=== PATIENT | female | born 1965 | race Caucasian/White ===

== ENCOUNTER 2019-10-02 15:52 | Emergency (ER) | payer MEDICARE, SELFPAY ==
[2019-10-02 16:20] VITALS: BP 132/64; PULSE 93; RESP 20; TEMP 37.5; O2SAT 95
--- NOTE | 2019-10-02 16:57 | ED.URI ---
HPI - URI/Sore Throat General Chief Complaint: Upper Respiratory Infection Stated Complaint: Ear/Nose/Throat Time Seen by Provider: 10/02/19 16:57 Source: patient Mode of arrival: ambulatory Limitations: no limitations History of Present Illness HPI Narrative: patient presents with a sore throat. Hurts to swallow. no drooling no trouble swallowing. MD elicited complaint: sore throat Related Data Home Medications Medication Instructions Recorded Confirmed duloxetine 60 mg PO DAILY 10/02/19 10/02/19 gabapentin 800 mg PO QID 10/02/19 10/02/19 hydrocodone-acetaminophen 1 tablet PO Q6H PRN 10/02/19 10/02/19 meloxicam 15 mg PO DAILY 10/02/19 10/02/19 Allergies Allergy/AdvReac Type Severity Reaction Status Date / Time Gadolinium-Containing Allergy Intermediate Itching Verified 10/02/19 16:40 Contrast Medi Tetracyclines AdvReac Intermediate Nausea and Verified 10/02/19 16:40 Vomiting Review of Systems Review of Systems: Narrative: CONSTITUTIONAL: Denies fever, chills, or sweats. EYES: Denies visual changes, redness, or discharge. ENT: Denies rhinorrhea, congestion, or otalgia. Reports sore throat CARDIOVASCULAR: Denies chest pain, palpitations, or edema. RESPIRATORY: Denies cough or dyspnea. GASTROINTESTINAL: Denies abdominal pain, nausea, vomiting, or diarrhea. GENITOURINARY: Denies dysuria or hematuria. SKIN: Denies rash or itching. MUSCULOSKELETAL: Denies back pain, joint pain, or myalgia. NEUROLOGIC: Denies headache, numbness, or weakness. PSYCHIATRIC: Denies anxiety or depression. PMFSH Comments At time of signature, agree with nursing past medical, surgical, social and family history. There is no relevant family history pertinent to the presenting complaint Exam Narrative: Exam Narrative: GENERAL: Well-appearing, well-nourished, and in no acute distress. HEAD: Normocephalic, atraumatic. EYES: PERRLA and EOMI. ENT: Nares clear, no rhinorrhea or epistaxis. Mucous membranes moist. Mild pharyngeal erythremia no exudate no trismus able to open mouth fully no drooling NECK: Supple. CHEST: Clear to auscultation. No respiratory distress. HEART: Regular rate and rhythm. No murmur heard. Normal peripheral pulses. ABDOMEN: Soft, nontender, nondistended, normal active bowel sounds. EXTREMITIES: Normal range of motion. No edema. SKIN: Warm, dry, no rash. NEURO: No focal deficits. Alert and oriented x3. Sarah Coma Scale Eye Opening: Spontaneous 4 Sarah Coma Scale Motor: Obeys Commands 6 [place] Coma Scale Verbal: Oriented 5 Sarah Coma Scale Total 15 Course Vital Signs Vital signs: Vital Signs Temperature 37.5 C 10/02/19 16:20 Pulse Rate 93 10/02/19 16:20 Respiratory Rate 20 10/02/19 16:20 Blood Pressure 132/64 10/02/19 16:20 Pulse Oximetry 95 10/02/19 16:20 Temperature 37.5 C 10/02/19 16:20 Pulse Rate 93 10/02/19 16:20 Respiratory Rate 20 10/02/19 16:20 Blood Pressure 132/64 10/02/19 16:20 Pulse Oximetry 95 10/02/19 16:20 MDM - URI/Sore Throat Differential Diagnosis Differential diagnosis: Likely upper respiratory infection, viral infection and pharyngitis Lab Data Lab results narrative: Positive strep test Critical Care Time Critical Care Time Critical Care Time: No Discharge Plan Discharge Clinical Impression: Strep pharyngitis, Upper respiratory infection Patient Disposition: Home, Self-Care Condition: Stable Instructions: Antibiotic Form Additional Instructions: Increase fluids especially juices and water [id number]-hpu-ppzlabe cough and cold medicine of your choice for your symptoms Salt water gargles, throat lozenges or throat sprays as desired change toothbrush in 3-5 days Antibiotic as directed--finished the medication It may take the antibiotic 2-3 days to control the fever/symptoms -If you have any worsening of symptoms or any other concerns please go to the ED immediately. Prescriptions: New methylprednisolone [Medrol (P
== END 2019-10-02 17:05 | disposition home or self-care (01) ==
PROVIDERS: Emergency Provider Nurse Practitioner Family; PCP Family Medicine Adolescent Medicine
DX: J02.0 Streptococcal pharyngitis (principal)
CPT/HCPCS: 87880; 99213; G0463

== ENCOUNTER 2020-01-11 12:09 | Outpatient (CLI) | payer MEDICARE, SELFPAY ==
--- NOTE | ~2020-01-11 | XR_ITS ---
XR knee LT min 4V DATE: 01/11/2020 12:30 INDICATION: Medial pain of sudden onset TECHNIQUE: 4 views COMPARISON: None FINDINGS: There is soft tissue fullness in the suprapatellar bursa area suggesting suprapatellar knee joint effusion. There is mild periarticular spurring of the patella and apparent patellofemoral joint space narrowing , consistent with osteoarthritis. There is mild 2 moderate loss of height of medial compartment joint space and minimal medial periarti cular spurring suggesting osteoarthritic change. No fracture or dislocation, radiopaque intra-articular loose body or chondrocalcinosis. IMPRESSION: Knee joint effusion Osteoarthritis Reviewed, dictated and finalized at location A.
== END 2020-01-11 12:10 | disposition home or self-care (01) ==
PROVIDERS: PCP Family Medicine Adolescent Medicine; Visit Provider Family Medicine Adolescent Medicine
DX: M25.562 Pain in left knee (principal); M25.462 Effusion, left knee; M17.12 Unilateral primary osteoarthritis, left knee
CPT/HCPCS: 73564

== ENCOUNTER 2020-01-22 07:40 | Outpatient (CLI) | payer MEDICARE, SELFPAY ==
--- NOTE | ~2020-01-22 | MR_ITS ---
EXAMINATION: MR knee LT wo con DATE: 01/22/2020 08:34 INDICATION: Left knee injury with persistent joint effusion TECHNIQUE: Magnetic resonance imaging (MRI) of the left knee was performed without intravenous contra st. Sequences included coronal PD-weighted FSE, coronal PD-weighted FS FSE, sagittal T2-weighted FSE , sagittal PD-weighted FS FSE and axial PD weighted fat saturated FSE. COMPARISON: Left knee radiographs dated 01/11/2020 FINDINGS: Medial compartment: Complex tear of the medial meniscus with radial tear plane near the posterior root and with longitudi nal horizontal tear plane extending into the more medial posterior horn and posterior aspect of the m eniscal body. Partial-thickness chondral fissuring involving up to 50% of the cartilage thickness eusebia ng the anterior to central weightbearing medial femoral condyle. Chondral ulceration with mild partia l thickness cartilage loss and chondral surface irregularity along the medial tibial plateau. There i s mild subarticular edema along the medial rim of the medial tibial plateau. Lateral compartment: Lateral meniscus is normal. Partial-thickness chondral fissuring which appears to involve at least 50 % the cartilage thickness at the central aspect of the lateral tibial plateau. Mild partial thickness cartilage loss with mild chondral surface regularity along the medial side of the central to posteri or weightbearing lateral femoral condyle. Patellofemoral compartment: Full/near full-thickness chondral ulceration with scattered mild subarticular edema along much of the lateral patellar facet and along portions of the juxtaposed lateral trochlea. Deep fissuring at the patellar apical ridge, at the medial patellar facet and at the medial trochlea. Ligaments and tendons: Anterior and posterior cruciate ligaments are normal. The medial collateral ligament and fibular pretty ateral ligament complex are normal. Mild distal quadriceps and distal patellar tendinopathy without d iscrete tear. The visualized medial and lateral hamstring tendons as well as the iliotibial band are normal. Fluid: Small knee joint effusion with fluid and mild synovitis at the suprapatellar pouch. No loose osteocho ndral bodies identified. Osseous/other: Normal marrow signal aside from the previously noted regions of subarticular edema. No fracture or ab normal marrow replacing process. IMPRESSION: 1. Complex medial meniscal tear. 2. Tricompartmental osteoarthritis, mild to moderate severity in the patellofemoral compartment with high-grade chondromalacia. 3. Likely reactive small knee joint effusion. Reviewed, dictated and finalized at location A. IMPRESSION: 1. Complex medial meniscal tear. 2. Tricompartmental osteoarthritis, mild to moderate severity in the patellofem oral compartment with high-grade chondromalacia. 3. Likely reactive small knee joint effusion.
== END 2020-01-22 07:41 | disposition home or self-care (01) ==
PROVIDERS: PCP Family Medicine Adolescent Medicine; Visit Provider Family Medicine Adolescent Medicine
DX: S83.232A Complex tear of medial meniscus, current injury, left knee, initial encounter (principal); X58.XXXA Exposure to other specified factors, initial encounter; M17.12 Unilateral primary osteoarthritis, left knee; M25.462 Effusion, left knee; M22.42 Chondromalacia patellae, left knee
CPT/HCPCS: 73721

== ENCOUNTER 2020-03-26 09:40 | Outpatient (CLI) | payer MEDICARE, SELFPAY ==
[2020-03-26 10:38] LABS: Basophils Absolute Auto 0.1 K/mm3 (0.0-0.1); Basophils Percent Auto 1.2 % (0.2-1.2); Eosinophils Absolute Auto 0.1 K/mm3 (0-0.3); Eosinophils Percent Auto 2.8 % (0-4.4); Hematocrit 40.6 % (37.0-47.0); Hemoglobin 13.6 g/dL (12.0-15.0); Immature Granulocyte Absolute 0.01 K/mm3 (0.00-0.031); Immature Granulocyte Percent A 0.2 % (0-0.5); Lymphocytes Absolute Auto 1.77 K/mm3 (0.9-3.2); Lymphocytes Percent Auto 35.6 % (18.3-44.2); Mean Corpuscular HGB Conc 33.5 g/dl (32-36); Mean Corpuscular Hemoglobin 29.8 pg (26-34); Mean Platelet Volume 9.4 fl (7.4-10.4); Monocytes Absolute Auto 0.3 K/mm3 (0.1-0.6); Monocytes Percent Auto 5.2 % (2.6-8.5); Neutrophils Absolute Auto 2.7 K/mm3 (1.3-6.7); Platelet Count Result 209 k/mm3 (150-375); Red Blood Count 4.56 M/mm3 (4.2-5.4); Red Cell Distribution Width 12.3 % (11.5-14.5)
[2020-03-26 10:51] LABS: Rheumatoid Factor < 8.6 IU/ML (<12)
[2020-03-26 10:52] LABS: CRP < 0.5 mg/dL (<1.0); Uric Acid 5.1 mg/dL (2.5-7.5)
[2020-03-26 11:13] LABS: Erythrocyte Sedimentation Rate 18 mm/hr (0-20)
[2020-04-01 11:40] LABS: Anti Nuclear Antibody Pattern Nuclear, Speckled
== END 2020-03-26 09:41 | disposition home or self-care (01) ==
LOC: ANHLAB 09:40
PROVIDERS: Visit Provider Orthopaedic Surgery
DX: M17.0 Bilateral primary osteoarthritis of knee (principal); M06.9 Rheumatoid arthritis, unspecified
CPT/HCPCS: 36415; 84550; 85025; 85652; 86038; 86039; 86140; 86430

== ENCOUNTER 2021-03-10 17:00 | Outpatient (CLI) | payer MEDICARE, SELFPAY ==
[2021-03-10 17:43] LABS: Alanine Aminotransferase 17 U/L (4-35); Albumin Level 4.7 g/dL (3.5-5.1); Alkaline Phosphatase 67 U/L (38-126); Anion Gap 11 mmol/L (8-16); Aspartate Amino Transferase 27 U/L (14-36); Bilirubin,Total 0.6 mg/dL (0.2-1.3); Blood Urea Nitrogen 15 mg/dL (7-17); CRP < 0.5 mg/dL (<1.0); Calcium 9.4 mg/dL (8.4-10.2); Carbon Dioxide 23 mmol/L (22-30); Chloride 104 mmol/L (98-107); Estimated Glomerular Filt Rate 57; Glucose 124 mg/dL (65-105); Potassium 3.8 mmol/L (3.4-5.0); Sodium 138 mmol/L (137-145)
[2021-03-10 18:11] LABS: Erythrocyte Sedimentation Rate 15 mm/hr (0-20)
[2021-03-15 23:07] LABS: Anti Nuclear Antibody Pattern Nuclear, Speckled
== END 2021-03-10 17:01 | disposition home or self-care (01) ==
PROVIDERS: Visit Provider Physician Assistant
DX: M25.50 Pain in unspecified joint (principal)
CPT/HCPCS: 36415; 80053; 85652; 86038; 86039; 86140

== ENCOUNTER 2021-03-16 14:43 | Outpatient (CLI) | payer MEDICARE, SELFPAY | END 2021-03-16 14:44 | disposition home or self-care (01) | LOC: ANHLAB 14:46 | PROVIDERS: Visit Provider Physician Assistant | DX: F33.1 Major depressive disorder, recurrent, moderate (principal) | CPT/HCPCS: 36415; 84443 ==

== ENCOUNTER 2021-04-27 14:25 | Emergency (ER) | payer MEDICARE, SELFPAY ==
--- NOTE | ~2021-04-27 | XR_ITS ---
EXAMINATION: XR knee RT min 4V DATE: 04/27/2021 15:40 INDICATION: Right knee pain with palpable pop TECHNIQUE: Anteroposterior, 2 oblique and crosstable lateral views of the right knee were obtained COMPARISON: None. FINDINGS: Alignment is normal. No fracture. Joint spaces appear relatively preserved on nonweightbearing imagi ng. Small marginal osteophytes along the patella consistent with mild osteoarthritis. There is an oss icle along the superolateral margin of the patella which could represent either a bipartite patella w ith accessory apophyseal center or heterotopic ossification. No joint effusion/layering lipohemarthro sis. Soft tissues are unremarkable. IMPRESSION: 1. No right knee joint effusion or acute osseous abnormality. 2. 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 Reviewed, dictated and finalized at location B. IMPRESSION: 1. No right knee joint effusion or acute osseous abnormality. 2. Corticated ossicle along the superolateral margin of the patella with appear ance favoring heterotopic ossification along the medial patellofemoral retinacu lum over bipartite patella with accessory apophyseal center.
[2021-04-27 15:00] VITALS: BP 151/91; PULSE 70; RESP 18; TEMP 36.8; O2SAT 100
--- NOTE | 2021-04-27 16:52 | PC.NURSE ---
Pt ambulatory to intake states she has to leave due to her ride. Pt states its pretty bad when you get your results online before seeing the dr . Pt amb out of ED with limping gait. She had no further questions or complaints.
== END 2021-04-27 16:52 | disposition left against medical advice (07) ==
PROVIDERS: Emergency Provider Emergency Medicine; PCP Family Medicine Adolescent Medicine
DX: M25.561 Pain in right knee (principal)
CPT/HCPCS: 73564; 99199

== ENCOUNTER 2022-01-25 14:38 | Outpatient (CLI) | payer MEDICARE, SELFPAY ==
--- NOTE | 2022-01-25 | ECG_ITS ---
Measurements Intervals [place] Rate: 64 P: 61 AL: 131 QRS: 76 QRSD: 74 T: 55 QT: 379 QTc: 392 Interpretive Statements SINUS RHYTHM BORDERLINE ST ABNORMALITY- ANTERIOR LEADS BASELINE WANDER- AVR, AVL, AVF BORDERLINE ECG Electronically Signed On 01-25-2022 15:22:09 CDT by Marcelo Castro D.O.
[2022-01-25 15:42] LABS: Albumin Level 4.5 g/dL (3.5-5.1); Glucose 98 mg/dL (65-110)
[2022-01-26 09:32] LABS: Estimated Glomerular Filt Rate > 60
== END 2022-01-25 14:39 | disposition home or self-care (01) ==
PROVIDERS: PCP Family Medicine Adolescent Medicine; Visit Provider Orthopaedic Surgery
DX: M17.12 Unilateral primary osteoarthritis, left knee (principal); Z01.818 Encounter for other preprocedural examination; R94.31 Abnormal electrocardiogram [ECG] [EKG]
CPT/HCPCS: 36415; 82040; 82565; 82947; 93005

== ENCOUNTER 2022-03-05 11:34 | Outpatient (CLI) | payer MEDICARE, SELFPAY ==
[2022-03-05 13:04] LABS: Urine Cotinine NEGATIVE
[2022-03-05 13:35] LABS: Basophils Absolute Auto 0.1 K/mm3 (0.0-0.1); Basophils Percent Auto 1.1 % (0.2-1.2); Eosinophils Absolute Auto 0.1 K/mm3 (0-0.3); Eosinophils Percent Auto 1.9 % (0-4.4); Hematocrit 43.5 % (37.0-47.0); Hemoglobin 14.3 g/dL (12.0-15.0); Immature Granulocyte Absolute 0.01 K/mm3 (0.00-0.031); Immature Granulocyte Percent A 0.2 % (0-0.5); Lymphocytes Absolute Auto 1.72 K/mm3 (0.9-3.2); Lymphocytes Percent Auto 32.2 % (18.3-44.2); Mean Corpuscular HGB Conc 32.9 g/dl (32-36); Mean Corpuscular Hemoglobin 29.4 pg (26-34); Mean Corpuscular Volume 89.5 fl (80-100); Mean Platelet Volume 9.8 fl (7.4-10.4); Monocytes Absolute Auto 0.4 K/mm3 (0.1-0.6); Monocytes Percent Auto 8.2 % (2.6-8.5); Neutrophils Percent Auto 56.4 % (45.5-73.1); Platelet Count Result 236 k/mm3 (150-375); Red Blood Count 4.86 M/mm3 (4.2-5.4); Red Cell Distribution Width 13.1 % (11.5-14.5); White Blood Count 5.3 K/mm3 (4.5-10.0)
[2022-03-05 13:46] LABS: Albumin Level 4.8 g/dL (3.5-5.1); Estimated Glomerular Filt Rate > 60; Glucose 92 mg/dL (65-110)
[2022-03-05 15:18] LABS: Hemoglobin A1C 5.7 % (<5.7)
== END 2022-03-05 11:35 | disposition home or self-care (01) ==
LOC: ANHSURGERY 11:38
PROVIDERS: PCP Family Medicine Adolescent Medicine; Visit Provider Orthopaedic Surgery
DX: M17.12 Unilateral primary osteoarthritis, left knee (principal); Z01.818 Encounter for other preprocedural examination
CPT/HCPCS: 80307; 82040; 82565; 82947; 83036; 85025; 87081

== ENCOUNTER 2022-03-05 12:45 | Outpatient (CLI) | payer MEDICARE, SELFPAY ==
[2022-03-05 13:39] LABS: Alanine Aminotransferase 27 U/L (6-35); Albumin Level 4.8 g/dL (3.5-5.1); Alkaline Phosphatase 76 U/L (38-126); Anion Gap 4 mmol/L (8-16); Aspartate Amino Transferase 30 U/L (14-36); Bilirubin,Total 0.4 mg/dL (0.2-1.3); Blood Urea Nitrogen 16 mg/dL (7-17); Calcium 8.9 mg/dL (8.4-10.2); Carbon Dioxide 28 mmol/L (22-30); Chloride 104 mmol/L (98-107); Cholesterol 261 mg/dL (0-200); Estimated Glomerular Filt Rate > 60; Glucose 95 mg/dL (65-110); HDL Direct 67 mg/dL; Potassium 4.7 mmol/L (3.4-5.0); Sodium 136 mmol/L (137-145); Triglycerides 113 mg/dL (<150)
[2022-03-05 13:50] LABS: LDL Cholesterol Direct 145 mg/dL
== END 2022-03-05 12:46 | disposition home or self-care (01) ==
PROVIDERS: PCP Family Medicine Adolescent Medicine; Visit Provider Physician Assistant
DX: M17.12 Unilateral primary osteoarthritis, left knee (principal); E78.00 Pure hypercholesterolemia, unspecified
CPT/HCPCS: 36415; 80053; 80061

== ENCOUNTER 2022-03-30 00:04 | Day surgery (SDC) | payer MEDICARE, SELFPAY ==
--- NOTE | 2022-03-05 11:39 | PC.NURSE ---
Addendum entered by Sarah Hills RN 03/05/22 12:22: PT INSTRUCTED TO 20 OZ CLEAR LIQUIDS UP TO 0630 AM NOT 0930 AM - UNDERSTANDING VOICED Original Note: Report to the Outpatient Waiting Room, entrance under the green pavilion located off [facility], at time _0830_ on date _03/30/22_. OR Time: _1030_. - You and your visitor will be asked a series of questions to screen for COVID 19 for your protection. - Only one visitor is allowed at this time. - The patient visitor is requested to leave or wait in car when not with patient. - A mask is required within the hospital. VISITING HOURS 10AM-8PM, USE MAIN HOSPITAL ENTRANCE Patients may have clear liquids (water, carbonated beverages, clear teas, apple juice) until 3 hours prior to surgery (0930 AM) with a maximum of 20 ounces. - No food from midnight until time of surgery Take the following medications with a SIP of water the morning of surgery: _ GABAPENTIN, PAIN PILL IF NEEDED_ Medications to discontinue per DR. MENCHACA - _DICLOFENAC 7 DAYS PRIOR TO SURGERY, Date to take last dose 03/22/22_ Please no make-up, nail belarusian, hairspray, perfume, deodorant, or body powder the day of surgery. No jewelry (including any body piercings) or valuables the day of surgery, leave them at home. Please take a shower or bath the night before, or the morning of, surgery with an antibacterial soap. Wear comfortable, loose fitting clothing. - Jewelry must be removed prior to entering the operating room. Rings and piercings that are not removed may be cut off. - The hospital will not accept responsibility for valuables. - Please leave all valuables, including medications, at home the day of surgery. If you are going home after surgery, a licensed mechanic welder truck driver must drive you home. - NO public transportation without another adult. - We recommend that an adult stay with you for 24 hours following discharge. - We also recommend that you do not drive, make important decision, drink alcoholic beverages, or take any drugs that were not prescribed by your health care provider for at least 24 hours after your discharge time. Follow any additional instructions given to you from your surgeon. TOTAL JOINT CLASS 03/10/22 @ [address] [facility], USE MAIN HOSPITAL ENTRANCE - LOWER LEVEL If you or anyone in your household have experienced Covid symptoms in the past week, please notify your surgeon or the nurse liaison at the phone number below for possible testing. Instructions given to ___PT and asked if any additional questions and then verbalized understanding. Patient advised to call surgeon office or pre surgery nurse liaison [phone] if any additional questions.
[2022-03-05 11:45] VITALS: BP 134/70; PULSE 64; RESP 18; TEMP 36.3; O2SAT 97; BMI 38.5
--- NOTE | 2022-03-29 13:59 | WPDANESEPPF ---
Anes - Initial Pre Proc Eval Procedure: Operation Date: 03/30/22 10:30 Proposed Procedures p Left Total Knee Arthroplasty - Sky Giang MD Date/Time: 03/29/22 13:59 Surgeon: Sky Giang MD Pre Op Diagnosis: Prim O A Lt Knee Patient Data Age: 56 Gender: F Height: 1.67 m Weight: 107.6 kg Last Vital Signs Temp 36.3 C L 03/05/22 11:45 Pulse 64 03/05/22 11:45 Resp 18 03/05/22 11:45 BP 134/70 03/05/22 11:45 Pulse Ox 97 03/05/22 11:45 O2 Del Method Room Air 03/05/22 11:45 Allergies Allergy/AdvReac Type Severity Reaction Status Date / Time Gadolinium-Containing Allergy Intermediate Itching Verified 03/05/22 11:51 Contrast Medi Tetracyclines AdvReac Intermediate Nausea and Verified 03/05/22 11:51 Vomiting Home Medications Medication Instructions Recorded Confirmed Type gabapentin 800 mg tablet 800 mg PO QID #120 tabs 09/24/21 03/05/22 Rx diclofenac sodium 75 mg 75 mg PO BID #60 tabs 11/22/21 03/05/22 Rx tablet,delayed release duloxetine 60 mg capsule,delayed 60 mg PO HS 03/05/22 03/05/22 History release trazodone 100 mg tablet 100 mg HS PRN Sleep 03/05/22 03/05/22 History hydrocodone 10 mg-acetaminophen 1 tablet PO TID PRN pain #90 tabs 03/09/22 Rx 325 mg tablet Patient hx anesthesia problems: none Family hx anesthesia problems: none Results Review: All pre-operative results and documents have been reviewed as part of the pre-operative evaluation. [facility] Past Medical History Medical History (Updated 03/29/22 @ 14:00 by Erlin Hancock MD) BMI 34.0-34.9,adult Brown recluse spider bite 10/09/2015 left lower leg Chronic narcotic use Depression Fibromyalgia Obesity (BMI 30-39.9) Osteoarthritis of left knee Pure hypercholesterolemia, unspecified Ulnar nerve entrapment at right elbow Surgical History Surgical History H/O tubal ligation (~2000) History of carpal tunnel surgery of right wrist (~1994) History of decompression of ulnar nerve (~06/12/03) Rt Elbow Family History Family History Mother Cancer Father Heart disease Acute myocardial infarction Grandparent Cancer Carcinoma of colon Colon polyp Social History Social History Years smoked: 20 Smoking status: Former smoker Tobacco type: cigarettes Second hand tobacco smoke exposure: No Smoking end date: 09/05/17 Alcohol intake: never Substance use: never Substance use type: marijuana Other substance usage details: STATES OCCASIONAL GUMMIE FOR PAIN Last use: UNKNOWN Living arrangements: with roommate(s) Additional living arrangements comments: ROOMATE X1 Additional occupation/education comments: disabled Gender identity (if verbalized by the patient): Female Sexual Orientation (if Verbalized by the Patient): Straight or Heterosexual Spiritual care concerns: No Agree to blood products: Yes Anes - Eval Final PreProcedure Day of Procedure 03/29/22 13:59 Patient weight: obese Heart: regular rate and rhythm Lungs: clear to auscultation and normal air movement Airway: Mallampati scale class II Neurological: alert and oriented Last oral intake: >/= 8 hours ASA classification: III Emergent: no Anesthetic plan: proceed Anesthesia type and monitoring: general LMA Results Review: All pre-operative results and documents have been reviewed as part of the pre-operative evaluation. Informed Consent: The patient's anesthetic plan and its attendant risks and benefits were discussed with the patient/family/POA. Questions were solicited and answers provided to the satisfaction of the patient/family/POA.
--- NOTE | 2022-03-29 14:01 | WPDANESPNB ---
Anes - Peripheral Nerve Block Date/Time: 03/29/22 14:01 I have discussed with the patient/family/POA the placement of a peripheral nerve block for post-operative pain management, including associated risks, benefits, complications, and side effects. Alternative methods of post-operative analgesia were detailed. Questions were solicited and answers provided to the satisfaction of the patient/family/POA. Time-Out: A pre-procedural Time-Out was completed immediately before starting the procedure and confirmed: Patient Identification, Site, Procedure, Patient Position and the Availability of Requisite Equipment. Clinical Indications: Acute post-operative pain management requested by the operative surgeon. Nerve Block Insertion Note Anes-nerve block: adductor canal Patient position: supine Skin prep: chlorhexidine Needle: 22 gauge, stimulating, insulated echogenic needle. Needle length: 80 mm Technique: ultrasound Technique comment: in plane Injectate: bupivacaine 0.5% with epi 5 mcg/ml (30cc) Observations: tolerated well Complications: none Procedure start time:: 1015 Procedure end time:: 1020
[2022-03-30] VITALS (12 sets, daily range): BP systolic 111–147; BP diastolic 52–86; PULSE 68–87; RESP 10–20; TEMP 36.3–36.7; O2SAT 93–100
--- NOTE | ~2022-03-30 | XR_ITS ---
EXAMINATION: XR knee LT 2V DATE: 03/30/2022 13:17 INDICATION: Postoperative evaluation following left total knee arthroplasty. TECHNIQUE: Anteroposterior and lateral views of the left knee were obtained. COMPARISON: None. FINDINGS: Left total knee arthroplasty with patellar resurfacing appears well seated and in near anatomic align ment. No fractures identified. No drain and expected postoperative subcutaneous and intra-articular gas. IMPRESSION: 1. Left total knee arthroplasty, negative for postoperative purposes. Reviewed, dictated and finalized at location A.
[2022-03-30] MEDS: LACTATED RINGERS 1,000 ML 30 ML IV CONT ×2 (08:43→13:08)
[2022-03-30] MEDS: TRANEXAMIC ACID 1,000MG/ISO100 1,000 MG/100 ML BAG 200 MG IVPB (08:44)
[2022-03-30] MEDS: ACETAMINOPHEN 500 MG TABLET 1000 MG PO (08:44)
--- NOTE | 2022-03-30 10:22 | WPDHPUPDATE1 ---
History and Physical Update Update Date/Time: 03/30/22 10:22 History and Physical has been reviewed, including an updated exam of the patient. There are NO changes in the patient's condition. Risks, benefits, and alternatives have been discussed and questions answered. Patient agrees to proceed with procedure.
[2022-03-30] MEDS: ceFAZolin 2 GM/D5W 50 ML 2 GM/50 ML BAG IVPB ×2 (10:33→18:04)
[2022-03-30] MEDS: GENTAMICIN BONE CEMENT REFOBACIN 1 EACH TOPICAL (12:24)
--- NOTE | 2022-03-30 13:32 | SUR.PHASEI ---
1330- oral airway removed
[2022-03-30] MEDS: fentaNYL CITRATE INJ (*CRX) 100 MCG/2 ML VIAL 25 MCG IV PUSH ×4 (13:35→13:54)
--- NOTE | 2022-03-30 14:48 | PC.NURSE ---
This patient, Cheli Cahng, was admitted to Medical Room 341-01. Patient/family oriented to hospital policies and general routines including ID bracelet, bed and alarms, visiting hours, pain management, procedures, bathroom and other care routines, personal items, smoking policy, room service/diet, and visiting hours. Information on how to activate the Rapid Response Team has been discussed. Patient/Family are encouraged to report perceived risks to care and to ask questions if they do not understand what they are told or what they should do.
--- NOTE | 2022-03-30 15:08 | W.PM.PROC2 ---
Procedure Note - Detailed Date of Procedure 03/30/22 Pre-op Diagnosis Prim O A Lt Knee Post-op Diagnosis Same Procedure Performed Total knee arthroplasty, left. Surgeon Sky Giang MD Lead Burner Helper Jennifer Zuñiga PA-C Anesthesia General and Regional (subsartorial block) Findings Good bone quality. Mild medial release. Severe patellofemoral disease. Trabecular metal ingrowth patella component utilized. Good remaining bone quality after patellar resection. Femur downsized 1.5 mm. Description of Procedure The patient was brought to the operating room. A general anesthetic was administered. The leg was prepped and draped in the usual sterile fashion. The limb was elevated and the tourniquet inflated to 300 mmHg during initial exposure, and cementation. A longitudinal incision was created along the medial border of the patella and patellar tendon, and a trivector approach to the knee was performed. A mild medial release was taken. The knee was then flexed. The osteophytes were carefully removed. The intramedullary guide was placed in the femoral canal. The distal femoral resection was then taken with the oscillating saw. The collateral ligaments were carefully protected. The tibia was carefully exposed. The jig was applied, and the proximal tibia was resected according to preoperative plan. The knee was balanced in extension. Appropriate releases were taken where needed. The anterior cruciate ligament and meniscal remnants were removed. The posterior cruciate ligament was preserved. The patella was measured. Patellar resection was carried out with the oscillating saw. The lug holes drilled. The femur was sized and rotation assessed using a combination of gap balancing, posterior referencing, and the AP axis. The 4 in 1 cutting block was used to finish the femoral cuts after equal gaps were assured. The osteophytes were carefully removed from the back of the knee. The knee was copiously irrigated with antibiotic solution periodically throughout the procedure. The meniscal remnants were removed. The spacer block was used to confirm equal flexion and extension gaps. No further releases were needed. The tibia was sized and broached. The bony surfaces were prepared for cementing with pulsatile lavage. The tibia was cemented, the femur was Press-Fit, the poly insert was placed, and the patella was Press-Fit. Excess cement was carefully removed. Patellar tracking was carefully assessed. No additional releases were required. Dilute sterile Betadine soak performed for three minutes. Copious irrigation then performed. The wound was closed with #1 Vicryl suture, #2, 2-0, and 3-0 barbed suture, followed by Steri-Strips. A sterile bulky dressing was applied. Meticulous hemostasis was maintained throughout the procedure. The bipolar cautery device was used. The pain relieving mixture was injected into the periarticular tissues during the procedure. There were no complications. The patient was extubated and brought to the recovery room in stable condition after the application of sterile dressing with Brigido bandage. Physician therapy assistant, Jennifer Zuñiga PA-C, required for surgery; including patient positioning, draping, tissue retraction, maintaining instrument position, cement removal, wound closure, and dressing placement. Implants [employer] Triathlon knee system, low profile cemented tibia size 3, cemented cruciate retaining femoral component size 3 ,and an 11 mm cruciate retaining polyethylene insert. 32mm asymmetric all polyethylene patella component. Estimated Blood Loss 200 Drains No Pathology None sent Complications No immediate complications Condition Stable Disposition PACU [facility] Billing Surgery - Charge Forward: Surgery Billing
[2022-03-30] MEDS: SODIUM CHLORIDE 0.9% IV 1,000 ML 125 ML IV CONT (15:22)
[2022-03-30] MEDS: SENNA/DOCUSATE SODIUM TABLET 2 TAB PO (16:54)
[2022-03-30] MEDS: ASPIRIN 81 MG ENTERIC TABLET PO (16:54)
[2022-03-30] MEDS: DICLOFENAC SOD 75 MG TABLET.EC PO (16:54)
[2022-03-30] MEDS: GABAPENTIN 400 MG CAPSULE 800 MG PO ×2 (16:55→21:56)
[2022-03-30] MEDS: DULoxetine HCL 60 MG CAPSULE.DR PO (21:56)
[2022-03-30] MEDS: FAMOTIDINE 20 MG TABLET PO (21:56)
[2022-03-31 00:04] VITALS: BP 110/61; PULSE 74; RESP 18; TEMP 36.5; O2SAT 96
[2022-03-31] MEDS: ceFAZolin 2 GM/D5W 50 ML 2 GM/50 ML BAG IVPB ×2 (01:20→09:27)
[2022-03-31 03:59] VITALS: BP 112/58; PULSE 74; RESP 16; TEMP 36.9; O2SAT 96
[2022-03-31] MEDS: oxyCODONE HCL (*CRX) 5 MG TAB IR PO ×3 (04:11→17:04)
--- NOTE | 2022-03-31 09:20 | WPDANESPN ---
Anes - Prog Note Post-Op Date/Time: 03/31/22 09:20 Vital Signs: Last Vital Signs Temp 36.9 C 03/31/22 03:59 Pulse 74 03/31/22 03:59 Resp 16 03/31/22 03:59 BP 112/58 L 03/31/22 03:59 Pulse Ox 96 03/31/22 03:59 O2 Del Method Nasal Cannula 03/30/22 15:30 O2 Flow Rate 2 03/30/22 15:30 Pain Score (VAS): 0 I/O: Intake & Output 03/30/22 03/31/22 03/31/22 23:59 07:59 15:59 Intake Total 740 150 300 Balance 740 150 300 03/30/22 08:34 Blood Type O Positive Antibody Screen Negative Patient Feedback: Patient satisfied with anesthetic care.
[2022-03-31] MEDS: FAMOTIDINE 20 MG TABLET PO (09:25)
[2022-03-31] MEDS: DICLOFENAC SOD 75 MG TABLET.EC PO ×2 (09:25→17:05)
[2022-03-31] MEDS: ASPIRIN 81 MG ENTERIC TABLET PO ×2 (09:25→17:05)
[2022-03-31] MEDS: SENNA/DOCUSATE SODIUM TABLET 2 TAB PO ×2 (09:25→17:05)
[2022-03-31] MEDS: GABAPENTIN 400 MG CAPSULE 800 MG PO ×3 (09:25→17:05)
[2022-03-31] MEDS: predniSONE 5 MG TABLET PO (09:25)
[2022-03-31 14:00] VITALS: BP 128/72; PULSE 72; RESP 18; TEMP 36.6; O2SAT 95
--- NOTE | 2022-03-31 16:12 | P.DS_ITS ---
DS: Admitting Diagnosis Discharge Date 03/31/22 Admitting Diagnosis OA Left knee DS: Discharge Diagnosis Discharge Diagnosis Plan Postop day 1: Left total knee arthroplasty. Patient tolerated procedure well. Drain placed postoperatively. Drain has been removed. No increased pain. No complications. Pain manageable with pain medication. No numbness or tingling. We had a lengthy discussion regarding postoperative wound care, limitations, expectations, and exercises. Patient shows good understanding. She has had initial physical therapy and is tolerating it well. DVT prophylaxis: 81 mg baby aspirin b.i.d. for 14 days. Pain medication: Percocet. Prednisone. Continue home Diclofenac. Patient has followup appointment with Dr. Giang in 3 weeks. DS: Summary Hospital Course Reason for hospitalization: Total knee arthroplasty Hospital Course: Patient tolerated procedure well. Has had initial PT/OT. Status at Discharge Functional status at discharge: uses cane/walker Overall status at discharge: patient is progressing back to baseline Time Spent with Patient Time attestation: Total time spent providing and/or coordinating discharge services: Exam Narrative: Overweight 56 y/o female. Resting comfortably in bed. Wearing compression socks bilaterally. Dressing dry and intact with no drainage. Moderate swelling. No ecchymosis. No erythema. No hematoma. Range of motion limited due to pain. Calf nontender. Thigh nontender. Neurologic status intact. No varicosities. Distal pulses palpable. Discharge Plan Discharge Patient Disposition: Home, Self-Care Discharge Instructions: See green instruction sheets Stand Alone Forms: General Discharge Instructions Follow-up/Referrals: Jennifer Zuñiga PA [Physician Ground Support Equipment Assembler] - Discharge Medications: New prednisone 5 mg tablet 5 mg PO DAILY 21 Days Qty: 21 0RF aspirin 81 mg tablet,delayed release (DR/EC) 81 mg PO BID 14 Days Qty: 28 0RF oxycodone-acetaminophen 5-325 mg tablet 1 - 2 tablet PO Q4-6H MDD 6 PRN (Reason: pain) Qty: 30 0RF Continued trazodone 100 mg tablet 100 mg HS PRN (Reason: Sleep) Rx Instructions: TAKE 1 TABLET BY MOUTH EVERYDAY AT BEDTIME duloxetine 60 mg capsule,delayed release(DR/EC) 60 mg PO HS gabapentin 800 mg tablet 800 mg PO QID Qty: 120 5RF diclofenac sodium 75 mg tablet,delayed release (DR/EC) 75 mg PO BID Qty: 60 5RF Held hydrocodone-acetaminophen 10-325 mg tablet 1 tablet PO TID PRN (Reason: pain) Qty: 90 0RF Hold Instructions: Resume on 05/12/22. Stop while taking Oxycodone for post op pain.
== END 2022-03-31 17:20 | disposition home or self-care (01) ==
LOC: ANHSURGERY 13:05 → ANH3MED 14:22
PROVIDERS: PCP Family Medicine Adolescent Medicine; Visit Provider Orthopaedic Surgery
PROC: (CPT 27447; principal; 2022-03-30 10:30)
DX: M17.12 Unilateral primary osteoarthritis, left knee (principal); G89.18 Other acute postprocedural pain; M79.7 Fibromyalgia; Z79.891 Long term (current) use of opiate analgesic; Z87.891 Personal history of nicotine dependence
CPT/HCPCS: 27447; 64447; 36415; 73560; 80053; 80061; 80307; 82040; 82565; 82947; 83036; 85025; 86850; 86900; 86901; 87081; 97110; 97161; 97165; 97530; 97535; A9270; C1713; C1776; J0131; J0171; J0690; J1100; J1170; J1885; J2250; J2270; J2405; J2704; J2795; J3010; J7030; J7120; J7512

== ENCOUNTER → 2023-03-28 11:12 | Outpatient (CLI) | payer MEDICARE, SELFPAY ==
--- NOTE | ~2023-03-28 | XR_ITS ---
Lumbosacral Spine: AP and lateral views Clinical History: Pain Findings: The normal lordotic curve is maintained. 4 mm anterolisthesis of L4 over L5 noted. No fract ure seen. There is moderate to advanced facet arthropathy at L4-L5 and L5-S1. The intervertebral disc spaces are preserved. The sacroiliac joints are normally outlined. Impression: Moderate to advanced facet arthropathy at L4-L5 and L5-S1. 4 mm anterolisthesis of L4 over L5. Reviewed, dictated and finalized at location . Impression: Moderate to advanced facet arthropathy at L4-L5 and L5-S1. 4 mm anterolisthesis of L4 over L5.
== END ==
PROVIDERS: PCP Family Medicine Adolescent Medicine; Visit Provider Nurse Practitioner Family
DX: M54.50 Low back pain, unspecified (principal)
CPT/HCPCS: 72100

== ENCOUNTER 2023-03-28 12:19 | Outpatient (CLI) | payer MEDICARE, SELFPAY ==
[2023-03-28 13:29] LABS: Alanine Aminotransferase 34 U/L (6-35); Albumin Level 4.6 g/dL (3.5-5.1); Alkaline Phosphatase 69 U/L (38-126); Anion Gap 8 mmol/L (8-16); Aspartate Amino Transferase 31 U/L (14-36); Bilirubin,Total 0.5 mg/dL (0.2-1.3); Blood Urea Nitrogen 18 mg/dL (7-17); Carbon Dioxide 25 mmol/L (22-30); Chloride 104 mmol/L (98-107); Cholesterol 252 mg/dL (0-200); Estimated Glomerular Filt Rate > 60; Glucose 97 mg/dL (65-110); HDL Direct 68 mg/dL; Potassium 4.1 mmol/L (3.4-5.0); Sodium 137 mmol/L (137-145); Triglycerides 107 mg/dL (<150)
[2023-03-28 13:40] LABS: LDL Cholesterol Direct 140 mg/dL
[2023-03-28 14:00] LABS: Thyroid Stimulating Hormone Reflex 0.877 uIU/mL (0.465-4.68)
== END 2023-03-28 12:20 | disposition home or self-care (01) ==
PROVIDERS: PCP Family Medicine Adolescent Medicine; Visit Provider Nurse Practitioner Family
DX: E66.9 Obesity, unspecified (principal); F32.A Depression, unspecified; F11.90 Opioid use, unspecified, uncomplicated
CPT/HCPCS: 36415; 80053; 80061; 84443

== ENCOUNTER 2024-11-12 11:27 | Outpatient (CLI) | payer MEDICARE, SELFPAY ==
[2024-11-12 12:27] LABS: Hematocrit 47.7 % (37.0-47.0); Hemoglobin 15.3 g/dL (12.0-15.0); Mean Corpuscular HGB Conc 32.1 g/dl (32-36); Mean Corpuscular Hemoglobin 29.1 pg (26-34); Mean Corpuscular Volume 90.9 fl (80-100); Mean Platelet Volume 10.1 fl (7.4-10.4); Platelet Count Result 222 k/mm3 (150-375); Red Blood Count 5.25 M/mm3 (4.2-5.4); Red Cell Distribution Width 12.8 % (11.5-14.5); White Blood Count 5.5 K/mm3 (4.5-10.0)
[2024-11-12 12:38] LABS: Alanine Aminotransferase 22 U/L (6-35); Albumin Level 4.9 g/dL (3.5-5.1); Alkaline Phosphatase 82 U/L (38-126); Anion Gap 11 mmol/L (4-12); Aspartate Amino Transferase 26 U/L (14-36); Bilirubin,Total 0.5 mg/dL (0.2-1.3); Blood Urea Nitrogen 18 mg/dL (7-17); Calcium 9.3 mg/dL (8.4-10.2); Carbon Dioxide 26 mmol/L (22-30); Chloride 103 mmol/L (98-107); Cholesterol 264 mg/dL (0-200); Estimated Glomerular Filt Rate > 60; Glucose 102 mg/dL (65-110); HDL Direct 86 mg/dL; Potassium 4.1 mmol/L (3.4-5.0); Sodium 140 mmol/L (137-145); Triglycerides 124 mg/dL (<150)
[2024-11-12 12:50] LABS: LDL Cholesterol Direct 132 mg/dL
[2024-11-12 12:55] LABS: Vitamin D 25 Hydroxy 26.7 ng/mL
[2024-11-12 13:09] LABS: Thyroid Stimulating Hormone 0.667 uIU/mL (0.465-4.680)
--- OUTSIDE RECORDS SUMMARY | 2024-11-12 13:41 | XMS_ITS | Referral Summary ---
Author Organization [facility] Address [address] [place] [address] Care Team Providers Care Car Rental Sales Assistant Name Role Phone Unknown, Notinfile Primary Care Provider Unavail able Allergies Active Allergy Reactions Criticality Noted Date Comments Escitalopram Diarrhea Low 07/18/2012 Loose stool Other Itching,Diarrhea,Gabe sea only,Other (See comments) Low 11/30/2012 Severe sweating Tetracycline Nausea only Low 11/30/2012 Medications gabapentin (NEURONTIN) 800 mg tablet 06/13/[address] (CYMBALTA) 60 mg capsule 04/17/[address] (VOLTAREN) 75 mg EC tablet 05/11/2021 Active traZODone (DESYREL) 100 mg tablet 04/17/2021 Active HYDROcodone-acetam inophen (NORCO) 10-325 mg per tablet 06/16/2021 Active Active Problems Problem Noted Date Diagnosed Date Primary osteoarthritis involving multiple joints 07/24/2021 Chronic fatigue 06/23/2021 ISAAK positive 06/23/2021 Chronic midline low back pain without sciatica 1 Chronic pain syndrome 06/23/2021 Pain in joint 06/19/2015 Abnormal posture 04/04/2015 Disturbance of skin sensation 04/04/2015 Insomnia 05/18/2012 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 Social History Tobacco Use Types Packs/Day Years Used Date Smoking Tobacco: Never Smokeless Tobacco: Never Comments Unknown Sex and Gender Information Value Date Recorded Sex Assigned at Not on file Legal Sex Female 10: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 Gender Identity Not on file Sexual Orientation Not on file Last Filed Vital Signs Vital Sign Reading Time Taken Comments Blood Pressure 155/85 06/22/2021 1:42 PM CDT Pulse 69 06/22/2021 1:42 PM CDT Temperature 36.8 C (98.2 F) 06/22/2021 1:42 PM CDT Respiratory Rate - - Oxygen Saturation - - Inhaled Oxygen Concentration - - Weight 99.8 kg (220 lb) 07/23/2021 9:56 AM 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 Height 167.6 cm (5' 6 ) 07/23/2021 9:56 AM 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 Body Mass Index 35.51 07/23/2021 9:56 AM 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 Plan of Treatment Not on file Insurance [facility] IDPA Care Teams Car Rental Sales Assistant Relationship Specialty Start Date End Date Unknown, Notinfile PCP - General 06/22/21
--- OUTSIDE RECORDS SUMMARY | 2024-11-12 13:41 | XMS_ITS | Clinical Summary ---
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 Surgical History Surgery Date Site/Laterality Comments DC NEUROPLASTY &/TRANSPOS MEDIAN NRV CARPAL TUNNE Neuroplasty Decompression Median Nerve At Carpal Tunnel - right (Added by TW Conv) DC NEUROPLASTY &/TRANSPOSITI ON ULNAR NERVE ELBOW Neuroplasty With Transposition Of Ulnar Nerve - At Elbow - right (Added by TW Conv) Family History Medical History Relation Name Comments Breast cancer Other Breast Cancer - mom (Added by TW Conv) Cancer Other Reported A Hist ory Of Cancer - (Added by TW Conv) Colon cancer Other Malignant Neopl asm, Colon - grandfather (Added by TW Conv) Heart attack Other Acute Myocardia l Infarction - dad (Added by TW Conv) Relation Name Status Comments Other Social History Tobacco Use Types Packs/Day Years Used Date Smoking Tobacco: Never Smokeless Tobacco: Never Comments Unknown Sex and Gender Information Value Date Recorded Sex Assigned at Not on file Legal Sex Female 10: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 OF 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 PATROL Gender Identity Not on file Sexual Orientation Not on file Obstetrics History Last Filed Vital Signs Vital Sign Reading Time Taken Comments Blood Pressure 155/85 06/22/2021 1:42 PM CDT Pulse 69 06/22/2021 1:42 PM CDT Temperature 36.8 C (98.2 F) 06/22/2021 1:42 PM CDT Respiratory Rate - - Oxygen Saturation - - Inhaled Oxygen Concentration - - Weight 99.8 kg (220 lb) 07/23/2021 9:56 AM CHIEF OF HARBOR PATROL Height 167.6 cm (5' 6 ) 07/23/2021 9:56 AM CHIEF OF HARBOR PATROL Body Mass Index 35.51 07/23/2021 9:56 AM CHIEF OF HARBOR PATROL Plan of Treatment Not on file Insurance [facility] IDPA Care Teams High Lead Yarder Relationship Specialty Start Date End Date Unknown, Notinfile PCP - General 06/22/21
--- OUTSIDE RECORDS SUMMARY | 2024-11-12 13:41 | XMS_ITS | Clinical Summary ---
Author Organization [facility] Address [facility] [place] [address] Care Team Providers Care Cylinder Tester Name Role Phone None, Provider MD Primary Care Provider Unavaila ble Social History Tobacco Use Types Packs/Day Years Used Date Smoking Tobacco: Never Assessed Comments Unknown Sex and Gender Information Value Date Recorded Sex Assigned at Not on file Legal Sex Female 1:25 PM COMPUTING SERVICES DIRECTOR Gender Identity Not on file Sexual Orientation Not on file Plan of Treatment Health Maintenance Due Date Last Done Comments Cervical Cancer Screening Pap Smear (Age 30 to 64) Every 3 Years 1963 Colorectal Cancer Screening Colonoscopy (10 Years) 1963 Annual Physical 1966 Hepatitis C 1981 DTaP, Tdap and Td Vaccines (1 - Tdap) 1982 Cervical Cancer Screening Pap with HPV Testing (Age 30 to 64) Every 5 Years 1993 Cervical Cancer Screening with HPV 1993 Mammogram Screening 2003 Zoster Vaccines (1 of 2) 2013 COVID-19 Vaccine ( season) 2024 06/23/2022, 09/24/2021, 12/31/2020, Additional history exists Influenza Adult (#1) 2024 06/23/2022, 09/24/2021, 06/01/2015, Additional history exists RSV Immunization or 60+ Years (1 - 1-dose 75+ series) 2038 Meningococcal B Vaccine Aged Out No l onger eligible based on patient's age to complete this topic Meningococcal Vaccine Aged Out No adriana marco eligible based on patient's age to complete this topic Pneumococcal Vaccine: Pediatrics (0 to 5 Years) and At-Risk Patients (6 to 64 Years) Aged Out No longer eligible based on patient's age to complete this topic RSV Immunizations Under 20 Months Aged Out No longer eligible based on patient's age to complete this topic Insurance [employer] MEDICA[employer] Care Teams Cylinder Tester Relationship Specialty Start Date End Date None, Provider, PCP - General UNKNOWN PHYSICIAN SPECIALTY 05/15/23
== END 2024-11-12 11:28 | disposition home or self-care (01) ==
LOC: ANHLAB 11:29
PROVIDERS: PCP Family Medicine Adolescent Medicine; Visit Provider Family Medicine Adolescent Medicine
DX: E78.00 Pure hypercholesterolemia, unspecified (principal); R53.83 Other fatigue; E55.9 Vitamin D deficiency, unspecified
CPT/HCPCS: 36415; 80053; 80061; 82306; 84443; 85027